=== PATIENT | male | born 1945 | race Caucasian/White ===

== ENCOUNTER 2022-10-21 12:31 | Emergency (ER) | payer OTHER, SELFPAY ==
[2022-10-21 12:32] VITALS: BP 92/48; PULSE 122; RESP 16; TEMP 36.8; O2SAT 98; BMI 29.9
--- NOTE | 2022-10-21 12:50 | EX.ED.DYSGE1 ---
HPI History of Present Illness Chief Complaint: Complaint Informant: patient Onset/Context/Timing Onset: Yesterday Context: Sudden Onset Timing: Continuous Quality: Dark blood Location: Urine Worsened by: Nothing Relieved by: Nothing Narrative Narrative: Patient presents with hematuria that began last night. Patient states it began rather suddenly. Patient states it has been constant since last night. Patient states it is dark blood. Patient denies any back or flank pain. Patient states nothing makes it better nothing makes it worse. Patient denies any dysuria. Patient denies any fevers or chills. Patient states he saw his primary care physician today for this. Patient was then referred to the emergency department because his blood pressure was low. Patient states his blood pressure is normally high. Patient denies any lightheadedness or dizziness. Patient denies any headaches. [facility] Medical History (Updated 10/21/22 @ 15:[address] Pepito Jane DO) Hypercholesterolemia Hypertension Hypothyroidism Status post gamma knife treatment Allergy/AdvReac Type Severity Reaction Status Date / Time No Known Allergies Allergy Verified 10/21/22 12:34 Surgical History (Updated 10/21/22 @ 12:[address] Pepito Jane DO) History of pituitary surgery Social History (Updated 10/21/22 @ 12:[address] Pepito Jane DO) Smoking Status: Former smoker ROS ROS ED Constitutional Constitutional ED: Denies chills or fever(s) Eyes Eyes: Denies blurry vision or change in vision ENT ENT ED: Denies rhinorrhea or sore throat Cardiovascular Cardiovascular: Denies chest pain or palpitations Respiratory/Chest Respiratory/Chest: Denies cough or dyspnea Gastrointestinal Gastrointestinal: Denies nausea or vomiting Genitourinary Genitourinary ED: Reports hematuria; Denies dysuria Musculoskeletal Musculoskeletal: Denies back pain or neck pain Integumentary Denies abscess or rash Neurologic Neurologic: Denies headache(s) or weakness Allergic/Immunologic Allergic/Immunologic ED: Denies mouth swelling or urticaria EXAM Physical Exam Const Vital Signs: 10/21/22 12:32 10/21/22 14:46 Temperature 98.2 F Temperature Source Temporal Pulse Rate 122 H Respiratory Rate 16 Blood Pressure 92/48 L 148/80 H Blood Pressure Mean 62 102 Pulse Ox 98 Oxygen Delivery Method Room Air Positive well nourished and well developed General Appearance ED: well developed HEENT Reports moist mucous membranes Neck supple and no JVD Resp normal respiratory effort and clear to auscultation bilaterally Cardio regular rate, regular rhythm and no murmurs GI normal to inspection, nondistended, normoactive bowel sounds and non-tender Palpation: soft Extremity normal to inspection General Extremety ED: Negative for edema or tenderness General Extremity: Negative for edema Neuro oriented x3, CN's II-XII intact bilaterally and no sensory deficits noted Sensorium / Orientation: alert Motor Exam: strength 5/5 throughout Psych mental status grossly normal Skin no rashes or lesions noted MDM MDM MDM Narrative Medical decision making narrative: Differential diagnosis includes ureteral calculus, hemorrhagic cystitis, bladder cancer, renal cancer, coagulopathy, and aortic aneurysm. CBC will be obtained to assess for anemia and leukocytosis. Basic metabolic profile will be obtained to assess for renal function and electrolyte abnormality. Urinalysis will be obtained to assess for hematuria and urinary tract infection. PT with INR and PTT will be obtained to assess for coagulopathy. CT scan of the abdomen pelvis will be obtained to assess for renal calculus, ureteral calculus, aortic aneurysm, and mass. Lab Data Attestation: I reviewed the patient's lab results. Lab results narrative: CBC was reviewed. There is a mild anemia with a hemoglobin of 10.6 and hematocrit 31.6. Platelets were normal. There are no prior labs available for comparison. Basic metabolic profile was reviewed. Sodium was slightly low at 132. BUN was slightly elevated at 20. The remainder is within normal limits. PT with INR was reviewed and was within normal limits. PTT was reviewed and was slightly elevated at 40.7. Urinalysis was reviewed. Occult blood was 150. There were greater than 100 red blood cells. There is no evidence of urinary tract infection. Labs: Laboratory Results - last 24 hr 10/21/22 10/21/22 10/21/22 13:10 13:10 13:10 WBC 6.1 RBC 3.50 L Hgb 10.6 L Hct 31.6 L MCV 90.3 MCH 30.3 MCHC 33.5 RDW Std Deviation 43.0 RDW Coeff of Frank 13.2 Plt Count 226 MPV 8.7 Immature Gran % (Auto) 0.300 Neut % (Auto) 63.5 Lymph % (Auto) 27.1 [place]son % (Auto) 7.1 Eos % (Auto) 1.2 Baso % (Auto) 0.8 Absolute Neuts (auto) 3.9 Absolute Lymphs (auto) 1.64 Nucleated RBC % 0 PT 14.0 INR 1.1 APTT 40.7 H Sodium 132 L Potassium 3.7 Chloride 99 Carbon Dioxide 27.0 Anion Gap 6 BUN 20 H Creatinine 0.82 Estim Creat Clear Calc 82.90 Est GFR (MDRD) Af Amer 118 Est GFR (MDRD) Non-Af 98 BUN/Creatinine Ratio 24.5 H Glucose 102 Calcium 9.1 Urine Color Urine Clarity Urine pH Ur Specific [place] Urine Protein Urine Glucose (UA) Urine Ketones Urine Occult Blood Urine Nitrite Urine Bilirubin Urine Urobilinogen Ur Leukocyte Esterase Urine RBC Urine WBC Ur Squamous Epith Cells Urine Bacteria Urine Mucus 10/21/22 14:12 WBC RBC Hgb Hct MCV MCH MCHC RDW Std Deviation RDW Coeff of Frank Plt Count MPV Immature Gran % (Auto) Neut % (Auto) Lymph % (Auto) Anson % (Auto) Eos % (Auto) Baso % (Auto) Absolute Neuts (auto) Absolute Lymphs (auto) Nucleated RBC % PT INR APTT Sodium Potassium Chloride Carbon Dioxide Anion Gap BUN Creatinine Estim Creat Clear Calc Est GFR (MDRD) Af Amer Est GFR (MDRD) Non-Af BUN/Creatinine Ratio Glucose Calcium Urine Color Red Urine Clarity Turbid Urine pH 7.0 Ur Specific [place] 1.010 Urine Protein 500 H Urine Glucose (UA) Normal Urine Ketones 15 H Urine Occult Blood 150 H Urine Nitrite Negative Urine Bilirubin Negative Urine Urobilinogen Normal Ur Leukocyte Esterase Negative Urine RBC > 100 SEEN Urine WBC 0 SEEN Ur Squamous Epith Cells 0 SEEN Urine Bacteria 0 SEEN Urine Mucus 0 SEEN Radiography Diagnostic Testing: Clinical Impression(s) from Imaging Studies Abdomen/Pelvis CT 10/21/22 12:58 IMPRESSION: The bladder is overdistended. The bladder measures 15.1 x 11.4 x 12 cm. In the base of the bladder there is a hyperdense material that is suggestive of probable hemorrhage and/or hematoma. This area measures at least 8.8 x 4.5 x 7.5 cm. Recommend correlation with any recent procedure and/or catheterization. There is a punctate possible stone within the mid aspect of the bladder. Potentially a passed stone could have this appearance however would not likely cause this amount of blood. Potentially an underlying hemorrhagic mass could have this appearance. No visualized renal or ureteral calculi. Constipation. Cholelithiasis without evidence of cholecystitis. Degenerative change of the thoracolumbar spine. Electronically Signed: Kirsten Plummer MD at 13:58 EDT , ADDENDUM: 10/21/22 1429 IMPRESSION: The bladder is overdistended. The bladder measures 15.1 x 11.4 x 12 cm. In the base of the bladder there is a hyperdense material that is suggestive of probable hemorrhage and/or hematoma. This area measures at least 8.8 x 4.5 x 7.5 cm. Recommend correlation with any recent procedure and/or catheterization. There is a punctate possible stone within the mid aspect of the bladder. Potentially a passed stone could have this appearance however would not likely cause this amount of blood. Potentially an underlying hemorrhagic mass could have this appearance. No visualized renal or ureteral calculi. Constipation. Cholelithiasis without evidence of cholecystitis. Degenerative change of the thoracolumbar spine. N.B. : The above Results were Read Back by Kirsten Plummer MD to Pepito Jane DO, and understanding confirmed on 10/21/2022 14:22:11 (ET). Electronically Signed: Kirsten Plummer MD at 13:58 EDT , CT scan of the abdomen pelvis was obtained. There is a distended bladder. There is an area of hyperdense material suggestive of probable hemorrhage in the base of the bladder measuring 8.8 x 4.5 x 7.5 cm. There is also a small punctate stone in the midportion of the bladder. This was interpreted by the radiologist and was also independently reviewed by myself. Treatment and Re-Evaluation :: Patient was given IV fluids. Patient is feeling better on reevaluation. Patient's blood pressure improved to 148/80. Patient feels better and wants to go home. Patient was given a referral for urology follow-up for further evaluation of the hematuria. Patient understands and is agreeable with the plan. All questions were answered. Discharge Plan Triage Chief Complaint: Complaint ED Provider: Pepito Jane Dx/Rx/DC Orders Clinical Impression: Hematuria Instructions: ED Hematuria Primary Care Provider: Alyssa Delgado Referrals: Sanya Hanson MD [Med Staff - Active Staff] - 3-5 Days Alyssa Delgado MD [Primary Care Provider] - 1-2 Weeks Disposition Disposition: Home, Self Care
--- NOTE | 2022-10-21 12:58 | CT_ITS ---
We are attempting to reach an attending provider to discuss findings. An addendum with communication details will be sent when the communication is complete. STUDY: CT ABDOMEN AND PELVIS WITHOUT CONTRAST REASON FOR EXAM: Male, 76 years old. Hematuria RADIATION DOSAGE (If Supplied By Facility): CTDIvol = ( 13.64 ) mGy, DLP = ( 691.99 ) mGycm TECHNIQUE: Transaxial images were obtained from the dome of the diaphragm to the symphysis pubis without oral contrast, and without intravenous contrast. Sagittal and coronal images were reconstructed. Individualized dose optimization techniques were used for this CT. COMPARISON: None. FINDINGS: The visualized lung bases are unremarkable. There is mild cardiac enlargement. Normal liver. A few layering small gallstones in the gallbladder. Normal spleen. Normal pancreas. Normal bilateral adrenal glands. Normal right kidney. There is minimal left pelviectasis. There are no visualized renal calculi. Normal visualized stomach. Normal small intestine. There is mild to moderate stool in the colon. The appendix is visualized and appears normal. Aorta is partially calcified. Normal inferior vena cava. Normal retroperitoneum. There is a distended appearance of the bladder. There is a layering focus of hyperdense fluid or material within the bladder. There is a punctate echogenicity within the right side of the bladder which may represent a possible stone or potential punctate foreign body. The hyperdense material within the base of the bladder measures approximately 8.8 x 4.5 x 7.2 cm. Prostate is diminutive in size. 2 nonspecific radiopaque densities within the low left side of the genitalia. Normal abdominal wall. There are diffuse degenerative changes of the visualized lumbar spine. CT/Abdomen/Pelvis without Cont IMPRESSION: The bladder is overdistended. The bladder measures 15.1 x 11.4 x 12 cm. In the base of the bladder there is a hyperdense material that is suggestive of probable hemorrhage and/or hematoma. This area measures at least 8.8 x 4.5 x 7.5 cm. Recommend correlation with any recent procedure and/or catheterization. There is a punctate possible stone within the mid aspect of the bladder. Potentially a passed stone could have this appearance however would not likely cause this amount of blood. Potentially an underlying hemorrhagic mass could have this appearance. No visualized renal or ureteral calculi. Constipation. Cholelithiasis without evidence of cholecystitis. Degenerative change of the thoracolumbar spine. Electronically Signed: Kirsten Plummer MD at 13:58 EDT ,
[2022-10-21] MEDS: 0.9% Normal Saline 1,000 ML 1000 ML IV (13:23)
[2022-10-21 13:24] LABS: Absolute Lymphocyte Count 1.64 X10^3/uL (0.83-4.51); Absolute Neutrophil Count 3.9 X10^3/uL (2.0-7.7); Basophil# 0.05 X10^3/uL; Basophil% 0.8 % (0-1); Eosinophil# 0.07 X10^3/uL; Eosinophils% 1.2 % (0-5); Hematocrit 31.6 % (40-54); Hemoglobin 10.6 g/dL (13.0-16.5); Lymphocyte # 1.64 X10^3/ul (0.83-4.51); Lymphocyte % 27.1 % (19-41); Mean Corp Hgb Conc 33.5 g/dL (32-36); Mean Corpuscular Hgb 30.3 pg (27.0-32.0); Mean Corpuscular Volume 90.3 fL (80-94); Mean Platelet Vol. 8.7 fl (6.2-12.0); Monocyte# 0.43 X10^3/uL; Monocyte% 7.1 % (0-10); NRBC Flagged by Analyzer 0 % (0-5); Neutrophil # 3.85 X10^3/uL (2.7-7.7); Neutrophil % 63.5 % (47-70); Platelet Count 226 K/mm3 (150-450); RBC Distribution Width CV 13.2 % (11.6-14.6); White Blood Count 6.1 K/mm3 (4.4-11.0)
[2022-10-21 13:33] LABS: Anion Gap 6 (5-15); BUN 20 mg/dL (7-18); BUN/Creat Ratio 24.5 RATIO (10-20); Calcium,Total 9.1 mg/dL (8.5-10.1); Chloride 99 mmol/L (98-107); Creatinine, Serum 0.82 mg/dL (0.70-1.30); EST Glomerular Filtration Rate 98 mL/min (>60); Est Glom Filt Rate - Afr Amer 118 mL/min (>60); Glucose 102 mg/dL (74-106); Potassium 3.7 mmol/L (3.5-5.1); Sodium Level 132 mmol/L (136-145)
[2022-10-21 13:50] LABS: International Normalized Ratio 1.1
[2022-10-21 13:51] LABS: Partial Thromboplast Time 40.7 Seconds (24.1-36.2)
[2022-10-21 14:17] LABS: Bacteria 0 SEEN /hpf (None Seen); Mucous, Urine 0 SEEN /hpf (<or=2+); Squamous Epithelial Cells - UA 0 SEEN /hpf (0-5); White Blood Cells 0 SEEN /hpf (0-5)
[2022-10-21 14:20] LABS: Color, Urine Red (Yellow); Glucose, Dipstick Normal (Normal); Ketone-Dipstick 15 mg/dl (Negative); Leukocyte Esterase-Dipstick Negative /ul (Negative); Nitrite-Dipstick Negative (Negative); Occult Blood-Urine 150 /ul (Negative); Protein-Dipstick 500 mg/dl (Negative); Urine Bilirubin Dipstick Negative (Negative); Urine Clarity Turbid (Clear); Urine Urobilinogen Normal (Normal)
[2022-10-21 14:27] LABS: Red Blood Cells-Urine > 100 SEEN /hpf (0-5)
[2022-10-21 14:46] VITALS: BP 148/80
[2022-10-21 15:00] VITALS: BP 132/85
== END 2022-10-21 15:40 | disposition home or self-care (01) ==
PROVIDERS: Emergency Provider Emergency Medicine; PCP Internal Medicine; Visit Provider Emergency Medicine
DX: R31.9 Hematuria, unspecified (principal); Z87.891 Personal history of nicotine dependence; I10 Essential (primary) hypertension; E78.00 Pure hypercholesterolemia, unspecified
CPT/HCPCS: 74176; 80048; 81001; 85025; 85610; 85730; 96360; 99283; J7030; A4216

== ENCOUNTER 2023-08-17 05:59 | Emergency (ER) | payer OTHER, SELFPAY ==
[2023-08-17] VITALS (9 sets, daily range): BP systolic 108–188; BP diastolic 63–95; PULSE 80–102; RESP 18–21; TEMP 36.2–37.4; O2SAT 95–96; BMI 28.1
--- NOTE | 2023-08-17 06:00 | RAD_ITS ---
STUDY: X-RAY CHEST REASON FOR EXAM: Male, 77 years old patient with acute neurologic deficit. Acute stroke suspected. TECHNIQUE: Single AP portable view of the chest. COMPARISON: Prior comparable comparison studies are not available for review at this time. FINDINGS: There appears to be heterogeneous ground glass attenuation in the left lower lobe. Lungs are underexpanded with crowding of the bronchovascular markings. There is no demonstrated pleural abnormality. There is mild cardiac enlargement. Normal mediastinum and delvis. Normal visualized pulmonary arteries. There is atherosclerotic tortuosity of the aortic arch and descending thoracic aorta. Normal visualized thoracic spine. Normal visualized ribs, clavicles, and shoulders. There is no demonstrated abnormality of the visualized soft tissue structures of the upper abdomen. RAD/Chest 1 View IMPRESSION: Left basilar airspace disease suggests pneumonia. Electronically Signed: Cherry Garrison MD at 7:09 EDT ,
--- NOTE | 2023-08-17 06:00 | CT_ITS ---
We are attempting to reach an attending provider to discuss findings. An addendum with communication details will be sent when the communication is complete. INDICATION: Neuro deficit, acute, stroke suspected EXAMINATION: CT BRAIN - CT Head Stroke Protocol W/O Contrast Injection TECHNIQUE: Multiple axial images were obtained of the head without intravenous contrast. A radiation dose optimization technique was used for this scan. IV Contrast dosage and agent: None. RADIATION DOSAGE (If Supplied By Facility): CTDIvol = ( 45 ) mGy, DLP = ( 965 ) mGycm COMPARISON: No relevant prior comparison study available FINDINGS: BRAIN PARENCHYMA: No intra- or extra-axial hemorrhage. No evidence of acute infarct. No intracranial mass or mass effect. There is preservation of the rodriguez/white matter interface. Posterior fossa structures are unremarkable. Patchy periventricular and deep white matter hypoattenuation is consistent with mild small vessel ischemic change. CSF SPACES: Proportional prominence of the ventricles and sulcal spaces is consistent with mild cerebral volume loss. No hydrocephalus. Basal cisterns are patent. CALVARIUM, SKULL BASE, PARANASAL SINUSES AND MASTOID AIR CELLS: The mastoid air cells and visualized paranasal sinuses are well aerated. The calvarium is intact. No discrete lytic or blastic abnormalities. ORBITS: Both globes, extraocular muscles, optic nerves and retrobulbar fat appear unremarkable. CT/STROKE Brain/Head without Cont IMPRESSION: No acute intracranial finding. Electronically Signed: Morgan Ervin MD at 6:16 EDT ,
--- NOTE | 2023-08-17 06:00 | EKG12_ITS ---
Test Reason : Blood Pressure : / mmHG Vent. Rate : 100 BPM Atrial Rate : 100 BPM P-R Int : 208 ms QRS Dur : 106 ms QT Int : 368 ms P-R-T Axes : 047 108 061 degrees QTc Int : 474 ms Normal sinus rhythm Rightward axis Borderline ECG Confirmed by Chester Mcmahan ([id number]), associate entertainment editor MALLORY GARCIA ([id number]) on 08/19/2023 10:51:44 AM Referred By: Confirmed By:Chester Mcmahan
--- NOTE | 2023-08-17 06:01 | CT_ITS ---
INDICATION: Neuro deficit, acute, stroke suspected EXAMINATION: CTA HEAD AND CTA NECK TECHNIQUE: Noncontrast axial images were obtained of the brain immediately prior. Subsequently, routine carotid CT angiogram protocol was performed without and with IV contrast. In addition, images were obtained of the [place]. NASCET criteria using the distal ICAs for comparison were used for evaluation of stenoses. 3D reconstructions were reviewed. A radiation dose optimization technique was used for this scan. IV Contrast dosage and agent: 100 mL of [id number] COMPARISON: No relevant prior comparison study available FINDINGS: --CTA NECK: AORTIC ARCH AND BRANCHES: Normal anatomy, patent. RIGHT CCA: No occlusion, significant stenosis or dissection. RIGHT ICA: No occlusion, significant stenosis or dissection. Mild to moderate atherosclerotic calcification at the origin without flow-limiting stenosis. Additional peripheral plaque seen along the cervical course. LEFT CCA: No occlusion, significant stenosis or dissection. LEFT ICA: No occlusion, significant stenosis or dissection. Mild to moderate atherosclerotic calcification at the origin without flow-limiting stenosis. RIGHT VERTEBRAL ARTERY: No occlusion, significant stenosis or dissection. LEFT VERTEBRAL ARTERY: No occlusion, significant stenosis or dissection. NECK SOFT TISSUES: The lung apices are clear. No lymphadenopathy. Mild degenerative changes of the spine. --CTA HEAD: --Anterior circulation: ICAs: No significant stenosis at the intracranial/visualized segments. ACAs: No significant stenosis at the visualized segments. ACOM: Present. MCAs: Normal right MCA. There is high-grade stenosis of the left M1 segment. There is minimal peripheral flow seen, though it is diminished. --Posterior circulation: PCOMs: Patent, diminutive. [employer]: No significant stenosis at the visualized segments. BASILAR ARTERY: No significant stenosis. VERTEBRAL ARTERIES: No significant stenosis at the intradural/visualized segments. Mild atherosclerotic calcification present without flow-limiting stenosis. No evidence of intracranial aneurysm or vascular malformation. CT/STROKE CTA Head AND Neck W/Con IMPRESSION: Abnormal left MCA with high-grade narrowing of the left M1 lumen with diminished flow peripherally. This could be due to reconstitution of a thrombus. No flow-limiting stenosis in the neck. N.B. : The above Results were Read Back by Morgan Ervin MD to Rocky Yoa MD, and understanding confirmed on 08/17/2023 06:59:48 (ET). Electronically Signed: Morgan Ervin MD at 7:00 EDT ,
--- NOTE | 2023-08-17 06:01 | EDS_ITS ---
HPI History of Present Illness Chief Complaint: Stroke Alert Informant: patient and EMS Narrative Narrative: Patient presenting by EMS for concern for acute stroke, symptoms of trouble speaking and weakness on the right side, with flaccid right-sided paralysis on their initial evaluation. According to EMS, he was up with his this morning, preparing to take his in for her colonoscopy, he was walking and speaking normally, the then witnessed him suddenly have trouble speaking, leaning to 1 side, very acutely different. According to EMS, from the 's report, the last known well was 05 they present around 6 AM to the ER. Seen upon arrival in the ambulance bay. Patient denies any recent fall or injury, including today, no recent hospitalization or surgery. 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 He also had bladder cancer with remote procedure, he had a cystoscopy about 6 weeks ago that showed that everything was clear and no masses. He takes no antiplatelet or anticoagulant medications and has never had a stroke before that he knows of. [facility] Medical History (Updated 08/17/23 @ 06:[address] Rocky Yao MD) Bladder cancer Hypercholesterolemia Hyperlipemia Hypertension Hypothyroidism Status post gamma knife treatment Home Medications atorvastatin 20 mg tablet 20 mg PO DAILY 08/17/23 [History Last Taken Unknown] ferrous sulfate 325 mg (65 mg iron) tablet (Feosol) 325 mg PO DAILY 08/17/23 [History Last Taken Unknown] hydrocortisone 5 mg tablet 10 mg PO BID 08/17/23 [History Last Taken Unknown] levothyroxine 137 mcg tablet 137 mcg PO DAILY 08/17/23 [History Last Taken Unknown] losartan 100 mg-hydrochlorothiazide 25 mg tablet 1 tab PO DAILY 08/17/23 [History Last Taken Unknown] Allergy/AdvReac Type Severity Reaction Status Date / Time No Known Allergies Allergy Verified 08/17/23 06:12 Surgical History History of pituitary surgery Social History Smoking Status: Former smoker ROS ROS ED Review of Systems ROS Unobtainable: other Details: Limited ROS due to severe expressive aphasia Constitutional Constitutional ED: Denies chills or fever(s) Cardiovascular Cardiovascular: Denies chest pain or palpitations Respiratory/Chest Respiratory/Chest: Denies cough or dyspnea Gastrointestinal Gastrointestinal: Denies vomiting Genitourinary Genitourinary ED: Denies hematuria Musculoskeletal Musculoskeletal: Denies back pain or neck pain Neurologic Neurologic: Reports weakness; Denies headache(s) EXAM Physical Exam Const Vital Signs: 08/17/23 06:00 08/17/23 06:00 08/17/23 06:28 Temperature 97.2 F L Temperature Source Temporal Pulse Rate 94 Respiratory Rate 18 Blood Pressure 108/63 171/87 H Blood Pressure Mean 78 Blood Pressure Source Blood Pressure Position Blood Pressure Location Pulse Ox 95 95 Oxygen Delivery Method Room Air Room Air 08/17/23 06:00 08/17/23 06:30 08/17/23 06:45 Temperature 97.2 F L 99.3 F H Temperature Source Temporal Temporal Pulse Rate 94 102 H 86 Respiratory Rate 18 20 H 19 H Blood Pressure 171/87 H 172/90 H 179/94 H Blood Pressure Mean 115 117 122 Blood Pressure Source Monitor Monitor Blood Pressure Position Supine Supine Blood Pressure Location Left Arm Left Arm Pulse Ox 95 96 96 Oxygen Delivery Method Room Air Room Air Room Air Positive well nourished and well developed General Appearance ED: well developed and NAD HEENT Reports moist mucous membranes normocephalic and atraumatic Eyes PERRL and EOMs intact bilaterally Neck full ROM and supple Resp normal respiratory effort and clear to auscultation bilaterally Cardio regular rate, regular rhythm and no murmurs GI non-tender and non-distended Auscultation: normoactive bowel sounds Palpation: soft Extremity normal to inspection General Extremety ED: Negative for edema, pulses abnormal or tenderness General Extremity: Negative for edema or pulses abnormal Neuro Neuro Narrative: Patient can move all 4 extremities, he is weak on the right side but can move them. Dysarthric and expressive aphasia limiting the evaluation to some degree. Follows commands well. Sensorium / Orientation: awake and alert Psych mental status grossly normal Skin no rashes or lesions noted and no wounds NIHSS NIHSS Initial: 1a Level of Consciousness: 0 1b LOC Questions (Score 2 if aphasic/stupor): 2 1c LOC Commands (Only score 1st attempt): 0 2 Best Gaze (If aphasic, use reflexive mvmts.): 0 3 Visual: 0 4 Facial Palsy: 2 5 Motor Arm Right (UN = amputation/fusion): 1 5 Motor Arm Left: 0 6 Motor Leg Right: 1 6 Motor Leg Left: 0 7 Limb ataxia (Only + if out of proportion): 0 8 Sensory (Aphasia/stupor=0 or 1, coma=2): 1 9 Best Language: 2 10 Dysarthria (mute, coma=2, intubated=UN): 2 11 Extinction and Inattention (only scored if +): 0 Total Score: 11 post TNK: 1a Level of Consciousness: 0 1b LOC Questions (Score 2 if aphasic/stupor): 0 1c LOC Commands (Only score 1st attempt): 0 2 Best Gaze (If aphasic, use reflexive mvmts.): 0 3 Visual: 0 4 Facial Palsy: 1 5 Motor Arm Right (UN = amputation/fusion): 0 5 Motor Arm Left: 0 6 Motor Leg Right: 0 6 Motor Leg Left: 0 7 Limb ataxia (Only + if out of proportion): 0 8 Sensory (Aphasia/stupor=0 or 1, coma=2): 0 9 Best Language: 1 10 Dysarthria (mute, coma=2, intubated=UN): 1 11 Extinction and Inattention (only scored if +): 0 Total Score: 3 MDM MDM MDM Narrative Medical decision making narrative: Clinically, patient definitely improved compared with EMS initial evaluation. His speech is still severely disabled however. He was seen in the ambulance bay and sent directly to CT with EMS where he was weighed and returned to the room. I reviewed the images there is no acute hemorrhage, I discussed with the radiologist who agrees and I reviewed his report which I agree with. As patient entered the room I continued discussing with as I reevaluated him. NIH 11 see attached. I do believe this is an acute ischemic stroke. We discussed giving thrombolytics and an approximate 6% chance of bleeding, and we discussed risks and alternatives such as bleeding into the brain or from elsewhere, and observation to see if he completely resolves or does not, both of which are possible. She is agreeable to thrombolytics. This was again repeated with stroke neurology via telemedicine at the bedside, they agree with giving TNK, discussed similar statistics regarding the medication with the , and she is agreeable. Furthermore, stroke neurology is reviewing the CTA and believes there is an M1 segment left MCA LVO. Discussed again with the at the bedside to clarify all of this, and discussed choice of tertiary care center, she is okay with [facility]. I was simultaneously arranging for air transportation to [facility]. Radiologist called back shortly thereafter confirming this finding. I reviewed the images, I agree with the finding as well. I reexamined the patient. He is improving considerably. See repeat NIHSS. I reviewed the radiologist's interpretation of the patient's one-view portable chest x-ray, suggesting possible left lower lobe pneumonia. He does not have any symptoms of pneumonia, nor does he have a leukocytosis or leftward shift or abnormal pulmonary exam. For this reason, I am holding off on starting him on any antibiotics. History & Record Review Discussion w/independent historian: EMS personnel, Patient and Significant other Lab Data Attestation: I reviewed the patient's lab results. Labs: Laboratory Results - last 24 hr 08/17/23 06:15 WBC 11.0 RBC 3.97 L Hgb 11.9 L Hct 36.0 L MCV 90.7 MCH 30.0 MCHC 33.1 RDW Std Deviation 45.9 H RDW Coeff of Frank 13.8 Plt Count 207 MPV 9.1 Immature Gran % (Auto) 0.300 Neut % (Auto) 63.5 Lymph % (Auto) 26.1 [place] % (Auto) 8.5 Eos % (Auto) 0.9 Baso % (Auto) 0.7 Absolute Neuts (auto) 7.0 Absolute Lymphs (auto) 2.87 Nucleated RBC % 0 PT 14.1 INR 1.1 APTT 35.1 Sodium 134 L Potassium 3.9 Chloride 100 Carbon Dioxide 28.0 Anion Gap 6 BUN 15 Creatinine 0.94 Estim Creat Clear Calc 77.33 Est GFR (MDRD) Af Amer 100 Est GFR (MDRD) Non-Af 83 BUN/Creatinine Ratio 15.9 Glucose 110 H Calcium 9.1 Troponin I High Sens 10 Radiography Chest X-Ray - ED: 1 View, Read by ED Physician and - (Hypoventilation with bilateral atelectasis but no acute infiltrates) Diagnostic Testing: Clinical Impression(s) from Imaging Studies Brain CT 08/17/23 06:00 IMPRESSION: No acute intracranial finding. Electronically Signed: Morgan Ervin MD at 6:16 EDT , ADDENDUM: 08/17/23 0626 IMPRESSION: No acute intracranial finding. N.B. : The above Results were Read Back by Morgan Ervin MD to Rocky Yao MD, and understanding confirmed on 08/17/2023 06:19:16 (ET). Electronically Signed: Morgan Ervin MD at 6:16 EDT , Chest X-Ray 08/17/23 06:00 IMPRESSION: Left basilar airspace disease suggests pneumonia. Electronically Signed: Cherry Garrison MD at 7:09 EDT , Head/Neck CTA 08/17/23 06:01 IMPRESSION: Abnormal left MCA with high-grade narrowing of the left M1 lumen with diminished flow peripherally. This could be due to reconstitution of a thrombus. No flow-limiting stenosis in the neck. N.B. : The above Results were Read Back by Morgan Ervin MD to Rocky Yao MD, and understanding confirmed on 08/17/2023 06:59:48 (ET). Electronically Signed: Morgan Ervin MD at 7:00 EDT , ADDENDUM: 08/17/23 0707 IMPRESSION: Abnormal left MCA with high-grade narrowing of the left M1 lumen with diminished flow peripherally. This could be due to reconstitution of a thrombus. No flow-limiting stenosis in the neck. N.B. : The above Results were Read Back by Morgan Ervin MD to Rocky Yao MD, and understanding confirmed on 08/17/2023 06:59:48 (ET). Electronically Signed: Morgan Ervin MD at 7:00 EDT , Rhythm Strip Rhythm Strip: Sinus Rhythm Rate: 95 Ectopy: None EKG Initial EKG: Attestation: I personally reviewed and interpreted this EKG as follows: Interpretation: Sinus Rhythm and No Acute Injury Pattern Management Discussion w/another healthcare provider: Medication Manager (stroke neurology) and Radiologist Stroke Documentation Questions Stroke Team Activated: Yes (Prehospital by EMS) Reviewed Inclusion/Exclusion criteria: Yes Was Patient considered for Endovascular Intervention?: Yes-CTA +,PT transferred for further eval of endovascular intervention IV Thrombolytic Administered: Yes No contraindications from thrombolytic administration: Yes Risks, Benefits, Alternatives Discussed: Yes (with pt, ) Critical Care Time Critical Care Time: Yes Critical care time (excluding procedures): 30-74 minutes (47 min), Including time spent:, Discussing w/Patient &/or Family/Physicist Nuclear, Discussing w/Consultants, Arranging Admission or Transfer and Performing Direct Patient Care at Bedside Discharge Plan Triage Chief Complaint: Stroke Alert ED Provider: Rocky Yao Dx/Rx/DC Orders Clinical Impression: Acute ischemic left MCA stroke Prescriptions: No Action hydrocortisone 5 mg tablet 10 mg PO BID levothyroxine 137 mcg tablet 137 mcg PO DAILY atorvastatin 20 mg tablet 20 mg PO DAILY losartan-hydrochlorothiazide 100-25 mg tablet 1 tab PO DAILY ferrous sulfate [Feosol] 325 mg (65 mg iron) tablet 325 mg PO DAILY Primary Care Provider: Alyssa Delgado Referrals: Alyssa Delgado MD [Primary Care Provider] - Disposition Disposition: Acute Care Hospital Discharge Location: [facility]
[2023-08-17] MEDS: 0.9% Saline Lock 10 ML Syringe IV ×2 (06:27→06:29)
[2023-08-17] MEDS: TENECTEPLASE 3297.6 MG IV (06:28)
[2023-08-17 06:33] LABS: Absolute Lymphocyte Count 2.87 X10^3/uL (0.83-4.51); Basophil# 0.08 X10^3/uL; Basophil% 0.7 % (0-1); Eosinophils% 0.9 % (0-5); Hemoglobin 11.9 g/dL (13.0-16.5); Lymphocyte # 2.87 X10^3/ul (0.83-4.51); Lymphocyte % 26.1 % (19-41); Mean Corp Hgb Conc 33.1 g/dL (32-36); Mean Corpuscular Volume 90.7 fL (80-94); Mean Platelet Vol. 9.1 fl (6.2-12.0); Monocyte# 0.93 X10^3/uL; Monocyte% 8.5 % (0-10); NRBC Flagged by Analyzer 0 % (0-5); Neutrophil # 6.97 X10^3/uL (2.7-7.7); Neutrophil % 63.5 % (47-70); Platelet Count 207 K/mm3 (150-450); RBC Distribution Width CV 13.8 % (11.6-14.6); RBC Distribution Width SD 45.9 fl (35.1-43.9); Red Blood Count 3.97 M/mm3 (4.6-6.2)
[2023-08-17 06:42] LABS: International Normalized Ratio 1.1; Prothrombin Time (Protime)PT. 14.1 SECONDS (11.7-14.9)
[2023-08-17 06:43] LABS: Partial Thromboplast Time 35.1 Seconds (24.1-36.2)
[2023-08-17] MEDS: 0.9% Normal Saline (1000mL) 1,000 ML 100 ML IV (06:48)
[2023-08-17 06:52] LABS: Anion Gap 6 (5-15); BUN 15 mg/dL (7-18); BUN/Creat Ratio 15.9 RATIO (10-20); Calcium,Total 9.1 mg/dL (8.5-10.1); Chloride 100 mmol/L (98-107); Creatinine, Serum 0.94 mg/dL (0.70-1.30); EST Glomerular Filtration Rate 83 mL/min (>60); Est Glom Filt Rate - Afr Amer 100 mL/min (>60); Estimated Creatinine Clearance 77.33 ml/min; Glucose 110 mg/dL (74-106); Potassium 3.9 mmol/L (3.5-5.1); Sodium Level 134 mmol/L (136-145); Troponin-I HS 10 pg/mL (3.0-78.0)
[2023-08-17] MEDS: Labetalol (Prefilled) 20 MG/4 ML IV (06:54)
[2023-08-17] MEDS: DiphenhydrAMINE 50 MG/ML Syringe IV (07:01)
--- NOTE | 2023-08-17 07:02 | NURSING ---
[facility] ETA IS 20 - 25 MIN
[2023-08-17] MEDS: MethylPREDNISolone 125 MG/2 ML Vial IV (07:37)
== END 2023-08-17 07:42 | disposition short-term general hospital (02) ==
PROVIDERS: Emergency Provider Emergency Medicine; PCP Internal Medicine; Visit Provider Emergency Medicine
DX: I63.512 Cerebral infarction due to unspecified occlusion or stenosis of left middle cerebral artery (principal); E78.5 Hyperlipidemia, unspecified; E03.9 Hypothyroidism, unspecified; I10 Essential (primary) hypertension; Z79.899 Other long term (current) drug therapy; Z87.891 Personal history of nicotine dependence
CPT/HCPCS: 70450; 70496; 70498; 71045; 80048; 84484; 85025; 85610; 85730; 93005; 96361; 96374; 96375; 99285; J3101; J7030; Q9967; A4216